=== PATIENT | female | born 1965 | race Caucasian/White ===

== ENCOUNTER 2016-11-21 23:55 | Emergency (ER) | payer OTHER ==
[~2016-11-21] VITALS: Ht 172.7 cm; Wt 59.0 kg
[2016-11-22 00:15] VITALS: BP 134/92; PULSE 100; RESP 18; TEMP 99.7; O2SAT 96
[2016-11-22 01:32] LABS: AUTOMATED NEUTROPHIL # 2.1 TH/MM3 (1.8-7.7); BASOPHIL % 0.5 % (0.0-2.0); EOSINOPHIL % 0.6 % (0.0-4.0); HEMATOCRIT 44.2 % (35.0-46.0); HEMO FLAGS DIFF FINAL; LYMPHOCYTE # 1.5 TH/MM3 (1.0-4.8); MEAN CELL VOLUME 92.8 FL (80.0-100.0); MEAN CORPUSCULAR HEMOGLOBIN 31.2 PG (27.0-34.0); MEAN CORPUSCULAR HGB CONC 33.7 % (32.0-36.0); MONO % 8.5 % (0.0-8.0); NEUT % 52.4 % (16.0-70.0); PLATELET COUNT 326 TH/MM3 (150-450); RED BLOOD COUNT 4.77 MIL/MM3 (4.00-5.30); RED CELL DISTRIBUTION WIDTH 13.1 % (11.6-17.2); WHITE BLOOD COUNT 3.9 TH/MM3 (4.0-11.0)
[2016-11-22 01:39] LABS: CHLORIDE 111 MEQ/L (98-107); POTASSIUM 3.8 MEQ/L (3.5-5.1); SODIUM (NA) 144 MEQ/L (136-145)
[2016-11-22 01:42] LABS: ANION GAP 11 MEQ/L (5-15); BICARBONATE 21.6 MEQ/L (21.0-32.0); MAGNESIUM 2.4 MG/DL (1.5-2.5)
[2016-11-22 01:43] LABS: BLOOD UREA NITROGEN 11 MG/DL (7-18)
[2016-11-22 01:45] LABS: ALT (GPT) 22 U/L (10-53); AST (GOT) 14 U/L (15-37)
[2016-11-22 01:46] LABS: GLOMERULAR FILTRATION RATE 87 ML/MIN (>89)
[2016-11-22 01:47] LABS: TOTAL BILIRUBIN ADULT 0.2 MG/DL (0.2-1.0)
[2016-11-22 01:48] LABS: ALKALINE PHOSPHATASE 56 U/L (45-117)
[2016-11-22 01:51] LABS: BETA HCG QUANT LESS THAN 1 MIU/ML (0-5)
[2016-11-22 01:54] LABS: BLOOD, URINE TRACE (NEG); GLUCOSE,URINE NEG (NEG); KETONE, URINE NEG (NEG); NITRITE,URINE NEG (NEG); PH, URINE 5.5 (5.0-8.5)
[2016-11-22 02:01] LABS: AMPHETAMINE, URINE NEG (NEG); BARBITURATES, URINE NEG (NEG); COCAINE, URINE NEG (NEG)
--- NOTE | 2016-11-22 02:02 | RADHPO ---
EXAM DATE/TIME: 11/22/2016 01:46 [facility] COMPARISON: No previous studies available for comparison. INDICATIONS : Fell from bar stool and hit posterior head. ETOH. RADIATION DOSE: 64.48 CTDIvol (mGy) MEDICAL HISTORY : None SURGICAL HISTORY : Tonsillectomy. ENCOUNTER: Initial ACUITY: 1 day PAIN SCALE: 2/10 LOCATION: cranial TECHNIQUE: Multiple contiguous axial images were obtained of the head. Using automated exposure control and adj ustment of the mA and/or kV according to patient size, radiation dose was kept as low as reasonably a chievable to obtain optimal diagnostic quality images. FINDINGS: CEREBRUM: The ventricles are normal for age. No evidence of midline shift, mass lesion, hemorrhage or acute in farction. No extra-axial fluid collections are seen. POSTERIOR FOSSA: The cerebellum and brainstem are intact. The 4th ventricle is midline. The cerebellopontine angle i s unremarkable. EXTRACRANIAL: The visualized portion of the orbits is intact. SKULL: The calvaria is intact. No evidence of skull fracture. CONCLUSION: 1. No evidence of acute intracranial pathology. No masses are identified. El Hernandez MD on November 22, 2016 at 2:00 Board Certified Radiologist. This report was verified electronically.
[2016-11-22 02:04] LABS: METHOD OF COLLECTION BV; URINE COLOR STRAW (YELLW/STRAW)
[2016-11-22 02:05] VITALS: BP 117/73; PULSE 75; RESP 18; O2SAT 96
[2016-11-22 02:05] LABS: COMMENT (UR) CULT NOT INDICATED; CULTURE IF INDICATED CULT NOT INDICATED; SQUAMOUS EPITHELIAL CELL URINE 0-3 /hpf (0-5)
--- NOTE | 2016-11-22 02:27 | PD ---
HPI Chief Complaint: Fall Time Seen by Provider: 01:01 Travel History International Travel<30 days: No Contact w/Intl Traveler<30days: No Traveled to known affect area: No History of Present Illness HPI 51 year-old female presents to the emergency department by private transportation the care of friend for evaluation of head injury just prior to arrival to the emergency department. Patient was a local bar and fell off barstool backwards onto her back hitting her head. Event was witnessed and there was no loss of consciousness but patient reportedly appeared dazed. Patient was identified to have soft tissue swelling to the posterior scalp and friend brought her to the emergency room for evaluation. Patient's friend contacted the patient's parents who are at the bedside with the patient. Patient admits to drinking alcohol heavily. Patient does not recall events. PFSH Past Medical History Depression: Yes Tetanus Vaccination: > 5 Years Influenza Vaccination: No ?: Unknown LMP: Three weeks ago : 4 Para: 0 : 4 Ovarian Cysts: Yes Past Surgical History Appendectomy: Yes Tonsillectomy: Yes Social History Alcohol Use: Yes (A couple glasses per day) Tobacco Use: Yes (A few cigarettes a day ) Substance Use: No Allergies-Medications (Allergen,Severity, Reaction): Coded Allergies: No Known Allergies (Verified Allergy, Mild, 04/28/06) Reported Meds & Prescriptions Reported Meds & Active Scripts Active Review of Systems General / Constitutional: No: Fever Eyes: No: Visual changes HENT: Positive: Headaches, No: Neck Pain Cardiovascular: No: Chest Pain or Discomfort Respiratory: No: Shortness of Breath Gastrointestinal: No: Vomiting, Abdominal Pain Genitourinary: No: Flank Pain Musculoskeletal: No: Pain Skin: No Rash Neurologic: Positive: Headache, No: Weakness, Syncope Psychiatric: No: Anxiety, Suicidal Ideations Hematologic/Lymphatic: No: Lymph Node Enlargement Physical Exam Narrative GENERAL: Well-developed well-nourished female in no acute distress no respiratory distress intermittent tearful. SKIN: Warm and dry. HEAD: Atraumatic. Normocephalic. Posterior occiput soft tissue swelling consistent with hematoma without bony abnormality no abrasion or laceration. EYES: Pupils equal and round. No scleral icterus. No injection or drainage. Bilateral pupils equal round reactive to light extraocular muscles intact. ENT: No nasal bleeding or discharge. Mucous membranes pink and moist. Airway is patent. No hemotympanum. NECK: Trachea midline. No JVD. No midline tenderness to direct palpation along the cervical spine no bony step-off CARDIOVASCULAR: Regular rate and rhythm. RESPIRATORY: No accessory muscle use. Clear to auscultation. Breath sounds equal bilaterally. GASTROINTESTINAL: Abdomen soft, non-tender, nondistended. Hepatic and splenic margins not palpable. MUSCULOSKELETAL: Extremities without clubbing, cyanosis, or edema. No obvious deformities. NEUROLOGICAL: Awake and alert. No obvious cranial nerve deficits. Motor grossly within normal limits. Five out of 5 muscle strength in the arms and legs. Normal speech. PSYCHIATRIC: Appropriate mood and affect; insight and judgment normal. Data Data Last Documented VS Vital Signs Date Time Temp Pulse Resp B/P Pulse Ox O2 Delivery O2 Flow Rate FiO2 11/22/16 03:13 73 18 113/77 98 Room Air 11/22/16 00:15 99.7 Orders Complete Blood Count With Diff (11/22/16 01:01) Comprehensive Metabolic Panel (11/22/16 01:01) Urinalysis - C+S If Indicated (11/22/16 01:01) Drug Screen, Random Urine (11/22/16 01:01) Ed Urine Pregnancytest Poc (11/22/16 01:01) Iv Access Insert/Monitor (11/22/16 01:01) Alcohol (Ethanol) (11/22/16 01:01) Beta Hcg (Quant/Titer) (11/22/16 01:01) Salicylates (Aspirin) (11/22/16 01:01) Tylenol (Acetaminophen) (11/22/16 01:01) Psych Screen (11/22/16 01:01) Ice/Cold Pack (11/22/16 01:01) Ct Brain W/O Iv Contrast(Rout) (11/22/16 ) Ct Cerv Spine W/O Contrast (11/22/16 ) Magnesium (Mg) (11/22/16 01:01) Sodium Chlor 0.9% 1000 Ml Inj (Ns 1000 M (11/22/16 03:00) Labs Laboratory Tests Test 11/22/16 11/22/16 01:15 01:30 White Blood Count 3.9 TH/MM3 Red Blood Count 4.77 MIL/MM3 Hemoglobin 14.9 GM/DL Hematocrit 44.2 % Mean Corpuscular Volume 92.8 FL Mean Corpuscular Hemoglobin 31.2 PG Mean Corpuscular Hemoglobin 33.7 % Concent Red Cell Distribution Width 13.1 % Platelet Count 326 TH/MM3 Mean Platelet Volume 7.0 FL Neutrophils (%) (Auto) 52.4 % Lymphocytes (%) (Auto) 38.0 % Monocytes (%) (Auto) 8.5 % Eosinophils (%) (Auto) 0.6 % Basophils (%) (Auto) 0.5 % Neutrophils # (Auto) 2.1 TH/MM3 Lymphocytes # (Auto) 1.5 TH/MM3 Monocytes # (Auto) 0.3 TH/MM3 Eosinophils # (Auto) 0.0 TH/MM3 Basophils # (Auto) 0.0 TH/MM3 CBC Comment DIFF FINAL Differential Comment Sodium Level 144 MEQ/L Potassium Level 3.8 MEQ/L Chloride Level 111 MEQ/L Carbon Dioxide Level 21.6 MEQ/L Anion Gap 11 MEQ/L Blood Urea Nitrogen 11 MG/DL Creatinine 0.71 MG/DL Estimat Glomerular Filtration 87 ML/MIN Rate Random Glucose 105 MG/DL Calcium Level 8.4 MG/DL Magnesium Level 2.4 MG/DL Total Bilirubin 0.2 MG/DL Aspartate Amino Transf 14 U/L (AST/SGOT) Alanine Aminotransferase 22 U/L (ALT/SGPT) Alkaline Phosphatase 56 U/L Total Protein 8.0 GM/DL Albumin 4.1 GM/DL Human Chorionic Gonadotropin, LESS THAN 1 Quant MIU/ML Salicylates Level 2.8 MG/DL Ethyl Alcohol Level 304 MG/DL Urine Collection Type BV Urine Color STRAW Urine Turbidity CLEAR Urine pH 5.5 Urine Specific [place] 1.007 Urine Protein NEG mg/dL Urine Glucose (UA) NEG mg/dL Urine Ketones NEG mg/dL Urine Occult Blood TRACE Urine Nitrite NEG Urine Bilirubin NEG Urine Leukocyte Esterase NEG Urine Squamous Epithelial 0-3 /hpf Cells Microscopic Urinalysis Comment CULT NOT INDICATED Urine Opiates Screen NEG Urine Barbiturates Screen NEG Urine Amphetamines Screen NEG Urine Benzodiazepines Screen NEG Urine Cocaine Screen NEG Urine Cannabinoids Screen POS MDM Medical Decision Making Medical Screen Exam Complete: Yes Emergency Medical Condition: Yes Medical Record Reviewed: Yes Interpretation(s) CT brain w/o: FINDINGS: CEREBRUM: The ventricles are normal for age. No evidence of midline shift, mass lesion, hemorrhage or acute infarction. No extra-axial fluid collections are seen. POSTERIOR FOSSA: The cerebellum and brainstem are intact. The 4th ventricle is midline. The cerebellopontine angle is unremarkable. EXTRACRANIAL: The visualized portion of the orbits is intact. SKULL: The calvaria is intact. No evidence of skull fracture. CONCLUSION: 1. No evidence of acute intracranial pathology. No masses are identified. El Hernandez MD on November 22, 2016 at 2:00 Board Certified Radiologist. This report was verified electronically. CT cervical spine: CONCLUSION: 1. There is no evidence of acute fracture. 2. Degenerative change maximal at C6-C7 with moderate left-sided foraminal narrowing El Hernandez MD on November 22, 2016 at 2:56 Board Certified Radiologist. This report was verified electronically. Laboratory Tests Test 11/22/16 11/22/16 01:15 01:30 White Blood Count 3.9 TH/MM3 Red Blood Count 4.77 MIL/MM3 Hemoglobin 14.9 GM/DL Hematocrit 44.2 % Mean Corpuscular Volume 92.8 FL Mean Corpuscular Hemoglobin 31.2 PG Mean Corpuscular Hemoglobin 33.7 % Concent Red Cell Distribution Width 13.1 % Platelet Count 326 TH/MM3 Mean Platelet Volume 7.0 FL Neutrophils (%) (Auto) 52.4 % Lymphocytes (%) (Auto) 38.0 % Monocytes (%) (Auto) 8.5 % Eosinophils (%) (Auto) 0.6 % Basophils (%) (Auto) 0.5 % Neutrophils # (Auto) 2.1 TH/MM3 Lymphocytes # (Auto) 1.5 TH/MM3 Monocytes # (Auto) 0.3 TH/MM3 Eosinophils # (Auto) 0.0 TH/MM3 Basophils # (Auto) 0.0 TH/MM3 CBC Comment DIFF FINAL Differential Comment Sodium Level 144 MEQ/L Potassium Level 3.8 MEQ/L Chloride Level 111 MEQ/L Carbon Dioxide Level 21.6 MEQ/L Anion Gap 11 MEQ/L Blood Urea Nitrogen 11 MG/DL Creatinine 0.71 MG/DL Estimat Glomerular Filtration 87 ML/MIN Rate Random Glucose 105 MG/DL Calcium Level 8.4 MG/DL Magnesium Level 2.4 MG/DL Total Bilirubin 0.2 MG/DL Aspartate Amino Transf 14 U/L (AST/SGOT) Alanine Aminotransferase 22 U/L (ALT/SGPT) Alkaline Phosphatase 56 U/L Total Protein 8.0 GM/DL Albumin 4.1 GM/DL Human Chorionic Gonadotropin, LESS THAN 1 Quant MIU/ML Ethyl Alcohol Level 304 MG/DL Urine Collection Type BV Urine Color STRAW Urine Turbidity CLEAR Urine pH 5.5 Urine Specific [place] 1.007 Urine Protein NEG mg/dL Urine Glucose (UA) NEG mg/dL Urine Ketones NEG mg/dL Urine Occult Blood TRACE Urine Nitrite NEG Urine Bilirubin NEG Urine Leukocyte Esterase NEG Urine Squamous Epithelial 0-3 /hpf Cells Microscopic Urinalysis Comment CULT NOT INDICATED Urine Opiates Screen NEG Urine Barbiturates Screen NEG Urine Amphetamines Screen NEG Urine Benzodiazepines Screen NEG Urine Cocaine Screen NEG Urine Cannabinoids Screen POS Differential Diagnosis minor chi, ich, contusion, polysubstance ingestion, alcohol intoxication depression Narrative Course IV access obtained specimens collected and sent for resulting; patient sent for imaging of the brain and cervical spine by CT Patient identified to have blood alcohol of 304 with urine drug screen positive for cannabinoids; CBC is automated differential mild decrease of total white cell count 3900; complete metabolic panel urinalysis values grossly normal range ; quantitative hCG less than one, negative. At 3:04 AM patient feels well parents are at bedside waiting imaging results and maintaining lab test results. Patient denies being suicidal or homicidal has no plan has been somewhat depressed but no intentional overdose and injury occurred as a loss of balance slip and fall with subsequent head injury. Patient without homicidal or suicidal ideation. Parents are at bedside and are taking responsibility for patient and aware of need for close follow-up with the next 24 hours for head injury precautions and to return to the emergency department immediately for any change in condition; no work 3 days; increase fluid hydration with known alcoholic beverages; return to the emergency for free concerns or change in condition Diagnosis Primary Impression: Head injury, closed, with concussion Qualified Code: S06.0X0A - Head injury, closed, with concussion, without loss of consciousness, initial encounter Referrals: Primary Care Physician 2 days Patient Instructions: General Instructions Additional Instructions: Increase fluid hydration Do not drink alcoholic beverages Return to the emergency department for any concerns or change in condition Follow head injury precautions 24 hours No work 3 days Take medication as prescribed as needed for nausea and/or vomiting Med/Other Pt SpecificInfo: Prescription(s) given Scripts Ondansetron Odt (Zofran Odt)4 Mg Tab4 Mg SL Q6HR PRN (Nausea/Vomiting) #10 TAB Ref 0 Prov:Berenice King MD 11/22/16 Disposition: 01 DISCHARGE HOME Condition: Stable Berenice King MD Nov 22, 2016 02:27
[2016-11-22] MEDS ORDERED: SODIUM CHLOR 0.9% 1000 ML INJ 1,000 ML IV ONE (03:00)
--- NOTE | 2016-11-22 03:00 | RADHPO ---
EXAM DATE/TIME: 11/22/2016 01:46 [facility] COMPARISON: No previous studies available for comparison. INDICATIONS : Fell from bar stool and hit posterior head. ETOH. RADIATION DOSE: 26.00 CTDIvol (mGy) MEDICAL HISTORY : None SURGICAL HISTORY : Tonsillectomy. ENCOUNTER: Initial ACUITY: 1 day PAIN SCALE: 0/10 LOCATION: neck TECHNIQUE: Volumetric scanning of the cervical spine was performed. Multiplanar reconstructions in the sagittal, coronal and oblique axial planes were performed. Using automated exposure control and adjustment o f the mA and/or kV according to patient size, radiation dose was kept as low as reasonably achievable to obtain optimal diagnostic quality images. FINDINGS: Sagittal images demonstrate normal vertebral body alignment and curvature. The odontoid is intact. Th e occipital condyles and lateral masses of C1 are intact. Axial images were performed from C2-C3 to C7-T1. There is multilevel disc space narrowing and marginal osteophyte formation maximal at C5-C6. C2-C3: No significant abnormalities identified. C3-C4: No significant abnormalities identified. C4-C5: There is severe facet arthritis on the right. There is no significant spinal canal stenosis. There i s uncovertebral joint hypertrophy on the right side. C5-C6: There is osteophytic ridging asymmetric to the left. There is mild left sided neural foraminal narrow ing. There is no significant spinal canal stenosis. C6-C7: There is osteophytic ridging asymmetric to the left. There is uncovertebral joint hypertrophy on left side. There is moderate neural foraminal narrowing on the left. C7-T1: No significant abnormalities identified. CONCLUSION: 1. There is no evidence of acute fracture. 2. Degenerative change maximal at C6-C7 with moderate left-sided foraminal narrowing El Hernandez MD on November 22, 2016 at 2:56 Board Certified Radiologist. This report was verified electronically.
[2016-11-22 03:13] VITALS: BP 113/77; PULSE 73; RESP 18; O2SAT 98
[2016-11-22 03:31] LABS: ACETAMINOPHEN LESS THAN 2.0 MCG/ML (10.0-30.0)
[2016-11-22] MEDS ORDERED: ZOFR4TAB3 SL (03:31)
== END 2016-11-22 03:54 | disposition home or self-care (01) ==
LOC: PHED 23:55
DX: S06.0X0A Concussion without loss of consciousness, initial encounter (principal); M50.323 Other cervical disc degeneration at C6-C7 level; F32.9 Major depressive disorder, single episode, unspecified; Z72.0 Tobacco use; Y90.8 Blood alcohol level of 240 mg/100 ml or more; F10.10 Alcohol abuse, uncomplicated; W17.89XA Other fall from one level to another, initial encounter; Y93.89 Activity, other specified; Y92.511 Restaurant or cafe as the place of occurrence of the external cause; Y99.8 Other external cause status
CPT/HCPCS: 70450; 72125; 80053; 80307; 80329; 81001; 83735; 84702; 84703; 85025; 96360; 99284; J7030; 80320; G0480